=== PATIENT | female | born 1960 | race Caucasian/White ===

== ENCOUNTER 2019-10-17 11:23 | Inpatient (IN) | payer BC ==
[2019-10-17 12:28] LABS: BASO % 1.1 % (0-2.0); EOS % 0.9 % (0-4.5); LYMPH % 18.2 % (8-40); MCH 31.8 pg (25.7-33.7); MCHC 34.3 g/dl (32.0-36.0); MEAN CELL VOLUME 92.7 fl (80-96); MEAN PLT VOLUME 7.6 fl (7.5-11.1); MONO % 6.5 % (3.8-10.2); NEUT % 73.3 % (42.8-82.8); PLATELET COUNT 200 K/MM3 (134-434); RDW 12.3 % (11.6-15.6); WHITE BLOOD COUNT 5.1 K/mm3 (4.0-10.0)
[2019-10-17 12:34] LABS: INR 0.92 (0.83-1.09); PROTHROMBIN TIME (PATIENT) 10.9 SEC (9.7-13.0)
[2019-10-17 12:55] LABS: ALBUMIN 3.7 g/dl (3.4-5.0); BILIRUBIN,TOTAL 0.3 mg/dL (0.2-1); BLOOD UREA NITROGEN 20.6 mg/dL (7-18); CALCIUM 8.8 mg/dL (8.5-10.1); CREATININE 0.8 mg/dL (0.55-1.3); POTASSIUM 4.4 mmol/L (3.5-5.1); TOT PROT 6.8 g/dl (6.4-8.2)
[2019-10-17] MEDS ORDERED: PANTOPRAZOLE SODIUM 40 MG VIAL IVPUSH ONE (13:26)
[2019-10-17] MEDS ORDERED: PANTOPRAZOLE SODIUM 40 MG VIAL ONE (13:33)
--- NOTE | 2019-10-17 14:01 | PDOC ---
Documentation entered by Shayy Abarca SCRIBE, acting as scribe for Deion Lao MD. Deion Lao MD: This documentation has been prepared by the Rima aguiar Brenda, SCRIBE, under my direction and personally reviewed by me in its entirety. I confirm that the documentation accurately reflects all work, treatment, procedures, and medical decision making performed by me. History of Present Illness - General Chief Complaint: Pain Stated Complaint: GI PROBLEM Time Seen by Provider: 10/17/19 11:42 History Source: Patient Exam Limitations: No Limitations - History of Present Illness Initial Comments: 10/17/19 12:00 The patient is a 59 year old female with a significant PMH of chronic gastritis who presents to the emergency department for evaluation of an episode of pre- syncope. Patient reports that this morning she had an episode of feeling dizzy, lightheaded, "shaky" and had some tingling in her fingers 10 minutes after smoking half a cigarette. Patient notes that she is not a smoker, but rarely using cigarette smoking as a form of a laxative when she needs to have a bowel movement. Patient states that she had an endoscopy + Biopsy done Tuesday (10/15/19) and ever since then she has had 2 episodes of dark, almost black colored stools. She notes that she wanted to check the color of her stool again this morning to check if it was dark, prompting her to smoke half a cigarette. The stool was again noted to be dark. The endoscopy was negative. The patient denies taking iron supplements, pepto-bismol or blood thinners. Denies chest pain, shortness of breath. Denies fever, chills, nausea, vomiting, diarrhea and constipation. Denies dysuria, frequency, urgency and hematuria. Allergies: NKA Social history: 1 glass of wine a day and rare smoking. PCP: In the [facility] Past History - Medical History Allergies/Adverse Reactions: Allergies Allergy/AdvReac Type Severity Reaction Status Date / Time No Known Allergies Allergy Verified 10/17/19 11:32 Home Medications: Ambulatory Orders NK [No Known Home Medication] 10/17/19 COPD: No - Psycho-Social/Smoking History Smoking History: Never smoked - Substance Abuse Hx (Audit-C & DAST Scrn) How often the patient has a drink containing alcohol: Never Score: In Men: 4 or > Positive; In Women: 3 or > Positive: 0 Screen Result (Pos requires Nsg. Audit-10AR): Negative Review of Systems - Review of Systems Able to Perform ROS?: Yes Comments:: 10/17/19 12:15 CONSTITUTIONAL: (+) Dizziness (+) Lightheadedness. No fever, no chills, no fatigue EYES: ENT: No ear pain, no sore throat CARDIOVASCULAR: No chest pain, no palpitations RESPIRATORY: No cough, no SOB GI: (+) Dark stools. No nausea, no vomiting, no diarrhea GENITOURINARY: No dysuria, no frequency, no hematuria MUSKULOSKELETAL: No backpain, no joint pain, no myalgias SKIN: No rash NEURO: No headache *Physical Exam - Vital Signs Last Vital Signs Temp Pulse Resp BP Pulse Ox 98.2 F 63 16 111/72 100 10/17/19 11:29 10/17/19 11:29 10/17/19 11:29 10/17/19 11:29 10/17/19 11:29 - Physical Exam 10/17/19 12:16 CONSTITUTIONAL: Well-appearing; well-nourished; in no apparent distress HEAD: Normocephalic; atraumatic EYES: PERRL; EOM intact ENMT: External appears normal; normal oropharynx NECK: Supple; non-tender; no cervical lymphadenopathy CARD: Normal S1, S2; no murmurs, rubs, or gallops RESP: Normal chest excursion with respiration; breath sounds clear and equal bilaterally; no wheezes, rhonchi, or rales ABD: Soft, non-distended; non-tender; no palpable organomegaly, no palpable hernias EXT: Normal ROM in all four extremities; non-tender to palpation; distal pulses intact SKIN: Warm, dry, no rash NEURO: No focal neurological deficiencies. Heart Score/ECG Review - ECG Impressions Comment:: 10/17/19 12:17 Vent rate 65 bpm Normal sinus rythm with sinus arrhythmia Possible left ventricle enlargement Cannot r/o anterior infarct, age undetermined Abnormal ECG ED Treatment Course - LABORATORY CBC & Chemistry Diagram: 10/17/19 12:10 10/17/19 12:10 Medical Decision Making - Medical Decision Making 10/17/19 14:00 Patient is a well-appearing 59-year-old female status post EGD 48 hours previously presents with melena, lightheadedness and bilateral hand paresthesias. In the ED, patient is awake and alert, hemodynamically stable. Patient is orthostatic clinically. Melena is noted on rectal exam. Initial CBC reveals crit of 41. Will administer IV fluids, IV Protonix. Will consult GI. GI bleed likely related to biopsies performed during EGD. Will discussed with patient's GI doctor. Likely admission. GI (Who did endoscopy) Dr. Jamir Castro Office - Endoscopy suite - (x0) Discharge - Discharge Information Problems reviewed: Yes Clinical Impression/Diagnosis: GI bleed Qualifiers: GI bleed type/associated pathology: melena Qualified Code(s): K92.1 - Melena Condition: Fair - Admission Yes - Follow up/Referral - Patient Discharge Instructions - Post Discharge Activity
[2019-10-17] MEDS ORDERED: DEXTROSE 5%-0.45% SALINE 1,000 ML IV SCH (14:15)
--- NOTE | 2019-10-17 14:38 | PN ---
Teaching Attending Note Name of Resident: No Mtz ATTENDING PHYSICIAN STATEMENT I saw and evaluated the patient. I reviewed the resident's note and discussed the case with the resident. I agree with the resident's findings and plan as documented. SUBJECTIVE: dark stool 59 y/o female with hx of gastritis and h pylori in the past had a routine upper endoscopy on tuesday, some biopies were taken and discharged without any complications. Pt states the next day she started noting dark stools with her bms, had about 2 episodes yest and then again today. Today she reports having shortness of breath after climbing the stairs, feeling lightheaded this am and then laying down to feel better. Mild nausea which resolved. No vomiting, occured. Came to the ED as she was feeling too lightheaded. No cp, sob, n/v/f/c No other complaints Feels better since being in the ed No recent NSAID use, No ercent alcohol use PMHX: as above, ?sjogren's PSHX: none Meds: none Allergies: NKDA Socail Hx: drinks 1-2 glasses wine daily, no drug or tobacco use Family Hx: Father decreased hx of pancreatic cancer, Mother alive and well OBJECTIVE: Vital Signs Period Temp Pulse Resp BP Sys/Man Pulse Ox Last 24 Hr 98.2 F 63-77 14-16 111-124/72-82 100-100 GEN: Pt A and O, NAD HEENT: NC/AT, eomi, oropharynx - clear Neck: supple CV: pos S1, S2, RRR Chest: CTS heather Abd: soft, nt, nd pos bs Ext: no c, c, e Skin: no rashes EKG: NSR@ 65bpm, sinus arrhythmia CBC,CMP WBC 5.1 K/mm3 (4.0-10.0) 10/17/19 12:10 RBC 4.10 M/mm3 (3.60-5.2) 10/17/19 12:10 Hgb 13.0 GM/dL (10.7-15.3) 10/17/19 12:10 Hct 38.0 % (32.4-45.2) 10/17/19 12:10 MCV 92.7 fl (80-96) 10/17/19 12:10 MCH 31.8 pg (25.7-33.7) 10/17/19 12:10 MCHC 34.3 g/dl (32.0-36.0) 10/17/19 12:10 RDW 12.3 % (11.6-15.6) 10/17/19 12:10 Plt Count 200 K/MM3 (134-434) 10/17/19 12:10 MPV 7.6 fl (7.5-11.1) 10/17/19 12:10 Absolute Neuts (auto) 3.8 K/mm3 (1.5-8.0) 10/17/19 12:10 Neutrophils % 73.3 % (42.8-82.8) 10/17/19 12:10 Lymphocytes % 18.2 % (8-40) 10/17/19 12:10 Monocytes % 6.5 % (3.8-10.2) 10/17/19 12:10 Eosinophils % 0.9 % (0-4.5) 10/17/19 12:10 Basophils % 1.1 % (0-2.0) 10/17/19 12:10 Nucleated RBC % 0 % (0-0) 10/17/19 12:10 Sodium 138 mmol/L (136-145) 10/17/19 12:10 Potassium 4.4 mmol/L (3.5-5.1) 10/17/19 12:10 Chloride 105 mmol/L (98-107) 10/17/19 12:10 Carbon Dioxide 29 mmol/L (21-32) 10/17/19 12:10 Anion Gap 4 MMOL/L (8-16) L 10/17/19 12:10 BUN 20.6 mg/dL (7-18) H 10/17/19 12:10 Creatinine 0.8 mg/dL (0.55-1.3) 10/17/19 12:10 Est GFR (CKD-EPI)AfAm 93.53 10/17/19 12:10 Est GFR (CKD-EPI)NonAf 80.70 10/17/19 12:10 Random Glucose 94 mg/dL (74-106) 10/17/19 12:10 Calcium 8.8 mg/dL (8.5-10.1) 10/17/19 12:10 Total Bilirubin 0.3 mg/dL (0.2-1) 10/17/19 12:10 AST 17 U/L (15-37) 10/17/19 12:10 ALT 23 U/L (13-61) 10/17/19 12:10 Alkaline Phosphatase 50 U/L (45-117) 10/17/19 12:10 Total Protein 6.8 g/dl (6.4-8.2) 10/17/19 12:10 Albumin 3.7 g/dl (3.4-5.0) 10/17/19 12:10 ASSESSMENT AND PLAN: 59 y/o female with recent upper endoscopy admitted for melanotic stools * melena -- no active bleeding; ? from biopsies but not likely check serial h/h, frst one normal BP, HR stable Not orhtostatic IVF hydration, Protonix Clears for now * DvT prophy - venodynes only, ambulate if not dizzy COnsider DC tomorrow if H/H remain stable Problem List - Problems (1) GI bleed Code(s): K92.2 - GASTROINTESTINAL HEMORRHAGE, UNSPECIFIED Qualifiers: GI bleed type/associated pathology: melena Qualified Code(s): K92.1 - Melena
--- NOTE | 2019-10-17 15:35 | HP ---
CHIEF COMPLAINT: Dark Stools PCP: HISTORY OF PRESENT ILLNESS: 59 y/o F PMHx Sjogrens, Hemmorhoids, Chronic Gastritis, H. Pylori Infection presents with Dark Stools. Patient says she had an endoscopy on Saturday 10/14 where a biopsy was done; patient has been having yearly endoscopy's for the past for years with Dr. Castro since being diagnosed with H. Pylori. Patient says since procedure, she has experienced some mild discomfort with swallowing and nausea but has been able to tolerate diet. The day after the procedure, she noticed a dark black BM with no gross blood. She denies any prior hx of GI Bleeds or dark stools. This morning she was concerned that her stools may remain black but did not have the urge to defacate. In the past, she says she has smoked cigarrettes as a laxative---Thus she smoked a year old cigarette. Shortly after, she had a dark BM again. While climbing the stairs shortly after, she began to feel dizziness with some visual changes (was seeing spots), but did not lose conciousness. Her present at bedside endorses she was shaking, became pale and complained of numbness and tingling in her b/l upper extremities. This is the first time she has experienced any dark stools or any of these other sx's after an endoscopy prompting her to alert EMS. During my interview, patient was able to speak in full sentences and go from supine to upright seated position without experiencing any dizziness, lightheadedness. Patient endorses having a colonoscopy one year ago and says it was normal. Patient does not routinely take any medications. Denies any NSAID use, Iron supplementation, peptobismol use. Denies any travel, trauma or sick contacts. Denies any fevers, chills, chest pain, SOB, vomiting, diarrhea, constipation, dysuria, Hematuria, headache. FHx significant for father with pancreatic Ca, Mother with HTN and unclear GI issues GI (Who did endoscopy) Dr. 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 Moist mucous membranes. NECK: No JVD LUNGS: Diminished breath sounds at the bases, Otherwise CTAB, No wheezes, no crackles HEART: RRR, S1 S2 ABDOMEN: Soft, nontender, not distended, + bowel sounds, no guarding, no rebound MUSCULOSKELETAL: No CVA tenderness. EXTREMITIES: No peripheral edema. NEUROLOGICAL: Cranial nerves II-XII intact. Normal speech. Gross sensation intact throughout. 5/5 muscle strength throughout. PSYCHIATRIC: Cooperative. SKIN: Warm, dry RECTAL: Refused by patient Laboratory Last Values WBC 5.1 K/mm3 (4.0-10.0) 10/17/19 12:10 RBC 4.10 M/mm3 (3.60-5.2) 10/17/19 12:10 Hgb 13.0 GM/dL (10.7-15.3) 10/17/19 12:10 Hct 38.0 % (32.4-45.2) 10/17/19 12:10 MCV 92.7 fl (80-96) 10/17/19 12:10 MCH 31.8 pg (25.7-33.7) 10/17/19 12:10 MCHC 34.3 g/dl (32.0-36.0) 10/17/19 12:10 RDW 12.3 % (11.6-15.6) 10/17/19 12:10 Plt Count 200 K/MM3 (134-434) 10/17/19 12:10 MPV 7.6 fl (7.5-11.1) 10/17/19 12:10 Absolute Neuts (auto) 3.8 K/mm3 (1.5-8.0) 10/17/19 12:10 Neutrophils % 73.3 % (42.8-82.8) 10/17/19 12:10 Lymphocytes % 18.2 % (8-40) 10/17/19 12:10 Monocytes % 6.5 % (3.8-10.2) 10/17/19 12:10 Eosinophils % 0.9 % (0-4.5) 10/17/19 12:10 Basophils % 1.1 % (0-2.0) 10/17/19 12:10 Nucleated RBC % 0 % (0-0) 10/17/19 12:10 PT with INR 10.90 SEC (9.7-13.0) 10/17/19 12:10 INR 0.92 (0.83-1.09) 10/17/19 12:10 Sodium 138 mmol/L (136-145) 10/17/19 12:10 Potassium 4.4 mmol/L (3.5-5.1) 10/17/19 12:10 Chloride 105 mmol/L (98-107) 10/17/19 12:10 Carbon Dioxide 29 mmol/L (21-32) 10/17/19 12:10 Anion Gap 4 MMOL/L (8-16) L 10/17/19 12:10 BUN 20.6 mg/dL (7-18) H 10/17/19 12:10 Creatinine 0.8 mg/dL (0.55-1.3) 10/17/19 12:10 Est GFR (CKD-EPI)AfAm 93.53 10/17/19 12:10 Est GFR (CKD-EPI)NonAf 80.70 10/17/19 12:10 Random Glucose 94 mg/dL (74-106) 10/17/19 12:10 Calcium 8.8 mg/dL (8.5-10.1) 10/17/19 12:10 Total Bilirubin 0.3 mg/dL (0.2-1) 10/17/19 12:10 AST 17 U/L (15-37) 10/17/19 12:10 ALT 23 U/L (13-61) 10/17/19 12:10 Alkaline Phosphatase 50 U/L (45-117) 10/17/19 12:10 Total Protein 6.8 g/dl (6.4-8.2) 10/17/19 12:10 Albumin 3.7 g/dl (3.4-5.0) 10/17/19 12:10 Stool Occult Blood Positive (NEGATIVE) 10/17/19 12:10 Blood Type A POSITIVE 10/17/19 12:10 Antibody Screen Negative 10/17/19 12:10 ASSESSMENT/PLAN: 59 y/o F PMHx Sjogrens, Hemmorhoids, Chronic Gastritis, H. Pylori Infection presents with Dark Stools. #Dark Stools -In the setting of recent endoscopy with Bx concerning for UGIB -VSS without tachycardia or hypotension, BUN 20.6, FOBT Positive (though patient endorses hemorrhoids), ANA Refused by patient -Continue IV Pantoprazole 40mg daily -IV Hydration -Pain control; Avoid NSAIDs, ASA -Maintain 2 large bore IV's -Vital signs Q4H; Alert MD if HR > 100, SBP < 100 -Trend H&H; Transfuse to keep > 7.0 -Supplemental O2 to maintain SpO2 > 92% -GI Consulted -Will Make NPO after midnight for possible intervention; Clears for now -Fall precautions -Serial Abdominal exams #FEN -D5-1/2NS @ 75 -Replete Lytes PRN -Clears, Advance as tolerated #PPx -DVT: SCDs--Avoid chemical PPx given concerns for GI Bleed Dispo: Admit to med surg Visit type - Emergency Visit Emergency Visit: Yes ED Registration Date: 10/17/19 Care time: The patient presented to the Emergency Department on the above date and was hospitalized for further evaluation of their emergent condition. - New Patient This patient is new to me today: Yes Date on this admission: 10/17/19 - Critical Care Critical Care patient: No ATTENDING PHYSICIAN STATEMENT I saw and evaluated the patient. I reviewed the resident's note and discussed the case with the resident. I agree with the resident's findings and plan as documented. SUBJECTIVE: OBJECTIVE: ASSESSMENT AND PLAN:
[2019-10-17] MEDS: DEXTROSE 5%-0.45% SALINE 1,000 ML IV SCH (15:54)
--- NOTE | 2019-10-17 18:15 | PN ---
Progress Note (short form) - Note Progress Note: GI consult dictated ppi 40 mg iv bid h/h q12 clear liquid diet plan for diagnostic egd tuesday - f/u covid testing ; will tentatively make her NPO midnight in case procedure needs to be performed sooner. plan was discussed with her typewriter tester see dictated consult
--- NOTE | 2019-10-17 19:22 | CONS ---
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 She states she had an upper endoscopy performed by her track vehicle repairer in [facility] on Tuesday. Biopsies were done. 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 There were no ulcerations noted on this exam as per his report. She denies any abdominal pain, nausea, vomiting, hematemesis, or hematochezia, syncope, or dizziness. She does complain of weakness. PAST MEDICAL AND SURGICAL HISTORY: As listed in the HPI. ALLERGIES: No known drug allergies. PAST MEDICAL HISTORY: As per the HPI. PAST SURGICAL HISTORY: Breast augmentation 8 years ago. 32 years ago. SOCIAL HISTORY: She smokes intermittently, drinks 1-2 glasses of wine daily. No drug abuse. ALLERGIES: None. HOME MEDICATIONS: Reviewed. PHYSICAL EXAMINATION: Vital Signs: Temperature 99, pulse 81, blood pressure 117/76, respiratory rate 16, oxygen saturation 100% on room air . General: In no acute distress. HEENT: Anicteric sclerae. Cardiovascular: S1, S2, regular rate and rhythm. Lungs: Bilaterally clear to auscultation. Abdomen: Soft, nontender. Extremities: No edema. LABORATORY: White blood cell count 5, hemoglobin and hematocrit 13/30, MCV 92, platelet count 200, INR 0.92. Sodium 138, potassium 4.4, BUN/creatinine 20/0.8. AST 17, ALT 23, alkaline phosphatase 50, total bilirubin 0.3. Stool for occult blood was positive. COVID-19 testing is pending. Chest x-ray no acute pathology. IMPRESSION: Dark bowel movements, suspected melena after endoscopic procedure. She may have had some bleeding from previous biopsy sites. No signs of an overt gastrointestinal bleed at this time. She is hemodynamically stable. RECOMMENDATION: Clear liquid diet. Serial hemoglobin and hematocrit q.12. Start her on Protonix 40 mg IV b.i.d. After speaking with her track vehicle repairer, he would prefer if we were to perform an inpatient endoscopic evaluation, he apparently will not be in town for a week. Therefore, followup COVID testing and plan for diagnostic upper endoscopy, most likely on Tuesday. DO JENNY FERRELL/[id number] MTDD
[2019-10-17 20:01] LABS: BASO % 0.8 % (0-2.0); EOS % 0.8 % (0-4.5); HEMATOCRIT 35.9 % (32.4-45.2); HEMOGLOBIN 12.1 GM/dL (10.7-15.3); LYMPH % 26.1 % (8-40); MCH 31.3 pg (25.7-33.7); MCHC 33.7 g/dl (32.0-36.0); MEAN CELL VOLUME 92.8 fl (80-96); MEAN PLT VOLUME 7.6 fl (7.5-11.1); MONO % 5.2 % (3.8-10.2); NEUT % 67.1 % (42.8-82.8); PLATELET COUNT 191 K/MM3 (134-434); RBC 3.87 M/mm3 (3.60-5.2); RDW 12.5 % (11.6-15.6); WHITE BLOOD COUNT 4.8 K/mm3 (4.0-10.0)
[2019-10-17] MEDS: PANTOPRAZOLE SODIUM 40 MG VIAL IVPUSH SCH (21:37)
[2019-10-18] MEDS: DEXTROSE 5%-0.45% SALINE 1,000 ML IV SCH ×2 (01:26→17:55)
[2019-10-18 07:34] LABS: BASO % 1.1 % (0-2.0); EOS % 1.5 % (0-4.5); HEMATOCRIT 36.8 % (32.4-45.2); HEMOGLOBIN 12.5 GM/dL (10.7-15.3); LYMPH % 37.8 % (8-40); MCH 31.3 pg (25.7-33.7); MEAN CELL VOLUME 91.9 fl (80-96); MEAN PLT VOLUME 7.7 fl (7.5-11.1); NEUT % 52.6 % (42.8-82.8); PLATELET COUNT 219 K/MM3 (134-434); RBC 4.01 M/mm3 (3.60-5.2); RDW 12.4 % (11.6-15.6); WHITE BLOOD COUNT 4.1 K/mm3 (4.0-10.0)
[2019-10-18 07:56] LABS: ALBUMIN 3.4 g/dl (3.4-5.0); BILIRUBIN,TOTAL 0.6 mg/dL (0.2-1); BLOOD UREA NITROGEN 7.5 mg/dL (7-18); CALCIUM 8.5 mg/dL (8.5-10.1); CREATININE 0.7 mg/dL (0.55-1.3); MAGNESIUM 2.1 mg/dL (1.8-2.4); PHOSPHOROUS 3.8 mg/dL (2.5-4.9); POTASSIUM 4.2 mmol/L (3.5-5.1); TOT PROT 6.3 g/dl (6.4-8.2)
[2019-10-18] MEDS: PANTOPRAZOLE SODIUM 40 MG VIAL IVPUSH SCH (09:35)
--- NOTE | 2019-10-18 11:29 | EKG ---
Test Reason : Blood Pressure : / mmHG Vent. Rate : 065 BPM Atrial Rate : 065 BPM P-R Int : 126 ms QRS Dur : 082 ms QT Int : 418 ms P-R-T Axes : 058 067 063 degrees QTc Int : 434 ms NORMAL SINUS RHYTHM WITH SINUS ARRHYTHMIA POSSIBLE LEFT ATRIAL ENLARGEMENT CANNOT RULE OUT ANTERIOR INFARCT , AGE UNDETERMINED ABNORMAL ECG NO PREVIOUS ECGS AVAILABLE Confirmed by MICHELLE JOHNSON MD ([id number]) on 10/18/2019 11:29:02 AM Referred By: Confirmed By:MICHELLE JOHNSON MD
--- NOTE | 2019-10-18 13:52 | PN.GI ---
GI Progress Note Subjective: Scant formed dark BM today. No overt melena Spoke with her math and physics instructor Dr. Amaral: took multiple gastric and esophageal biopsies during EGD - Objective Vital Signs: Vital Signs Temperature 99.2 F 10/18/19 09:50 Pulse Rate 73 10/18/19 09:50 Respiratory Rate 18 10/18/19 09:50 Blood Pressure 119/77 10/18/19 09:50 O2 Sat by Pulse Oximetry (%) 99 10/18/19 09:50 Constitutional: Calm Eyes: No: Sclera Icterus Cardiovascular: Yes: Regular Rate and Rhythm Respiratory: Yes: CTA Bilaterally Gastrointestinal Inspection: No: Distention ...Auscultate: Yes: Normoactive Bowel Sounds ...Palpate: Yes: Soft. No: Hepatomegaly, Splenomegaly, Tenderness Labs: CBC, BMP 10/18/19 06:25 10/18/19 06:25 INR, PTT INR 0.92 (0.83-1.09) 10/17/19 12:10 Problem List - Problems (1) GI bleed Assessment/Plan: Hemodynamically stable without significant change in H/H. Normalized BUN. Do not think this relfects significant GI blleding. likely oozing from biopsy sites (just 30cc of blood can produce melena) Advise: Advance to clears Check repeat CBC If counts remain stable, D/C tomorrow and will need follow-up with her math and physics instructor. If overt melena, change in hemodynamics, worsening anemia, possible EGD 10/18 Protonix 40mg PO BID Code(s): K92.2 - GASTROINTESTINAL HEMORRHAGE, UNSPECIFIED Qualifiers: GI bleed type/associated pathology: melena Qualified Code(s): K92.1 - Melena
--- NOTE | 2019-10-18 14:12 | PN ---
Physical Exam: SUBJECTIVE: Patient seen and examined at bedside this morning. No acute events overnight. Patient reported she had no episodes of bloody bowel movements/dark stools since admission. OBJECTIVE: Vital Signs Temperature 99.2 F 10/18/19 09:50 Pulse Rate 73 10/18/19 09:50 Respiratory Rate 18 10/18/19 09:50 Blood Pressure 119/77 10/18/19 09:50 O2 Sat by Pulse Oximetry (%) 99 10/18/19 09:50 GENERAL: The patient is awake, alert, and fully oriented, in no acute distress. HEAD: Normal with no signs of trauma. EYES: PERRLA, EOMI, sclera anicteric, conjunctiva clear. ENT:moist mucous membranes. NECK: Trachea midline, full range of motion, supple. LUNGS: Breath sounds equal, clear to auscultation bilaterally HEART: Regular rate and rhythm, S1, S2 ABDOMEN: Soft, nontender, nondistended, normoactive bowel sounds EXTREMITIES: 2+ pulses, warm, well-perfused, no edema. NEUROLOGICAL: Cranial nerves II through XII grossly intact. Normal speech PSYCH: Normal mood, normal affect. SKIN: Warm, dry, normal turgor Laboratory Results - last 24 hr 10/17/19 10/17/19 10/17/19 14:25 19:48 21:10 WBC 4.8 RBC 3.87 Hgb 12.1 Hct 35.9 MCV 92.8 MCH 31.3 MCHC 33.7 RDW 12.5 Plt Count 191 MPV 7.6 Absolute Neuts (auto) 3.2 Neutrophils % 67.1 Lymphocytes % 26.1 D Monocytes % 5.2 Eosinophils % 0.8 Basophils % 0.8 Nucleated RBC % 0 PTT (Actin FS) 27.2 Sodium Potassium Chloride Carbon Dioxide Anion Gap BUN Creatinine Est GFR (CKD-EPI)AfAm Est GFR (CKD-EPI)NonAf Random Glucose Calcium Phosphorus Magnesium Total Bilirubin AST ALT Alkaline Phosphatase Total Protein Albumin COVID-19 (NAVIN) Not detected 10/18/19 10/18/19 06:25 06:25 WBC 4.1 RBC 4.01 Hgb 12.5 Hct 36.8 MCV 91.9 MCH 31.3 MCHC 34.0 RDW 12.4 Plt Count 219 MPV 7.7 Absolute Neuts (auto) 2.2 Neutrophils % 52.6 D Lymphocytes % 37.8 D Monocytes % 7.0 Eosinophils % 1.5 D Basophils % 1.1 Nucleated RBC % 0 PTT (Actin FS) Sodium 142 Potassium 4.2 Chloride 108 H Carbon Dioxide 26 Anion Gap 8 BUN 7.5 Creatinine 0.7 Est GFR (CKD-EPI)AfAm 109.91 Est GFR (CKD-EPI)NonAf 94.84 Random Glucose 110 H Calcium 8.5 Phosphorus 3.8 Magnesium 2.1 Total Bilirubin 0.6 AST 15 ALT 21 Alkaline Phosphatase 46 Total Protein 6.3 L Albumin 3.4 COVID-19 (NAVIN) Active Medications Generic Name Dose Route Start Last Admin Trade Name Freq PRN Reason Stop Dose Admin Dextrose/Sodium Chloride 1,000 mls @ 75 mls/hr 10/17/19 15:40 10/18/19 01:26 D5-1/2ns - IV 75 mls/hr ASDIR STACEY Administration Pantoprazole Sodium 40 mg 10/18/19 22:00 Protonix - PO BID STACEY ASSESSMENT/PLAN: Patient is a 59 y/o F PMHx Sjogrens, Hemmorhoids, Chronic Gastritis, H. Pylori Infection presents with Dark Stools. #Dark Stools likely 2/2 UGIB -In the setting of recent endoscopy with Biopsy -Patient remains hemodynamically stable, H/H stable, BUN improving -GI (Dr. Stout) consulted, Recommendations appreciated. -possibly GI bleeding not significant -will advance to clear liquid diet -monitor H/H, bm -Protonix 40mg po bid -If counts remain stable, plan for dc tomorrow with follow up with patient's GI -if with overt melena, worsening anemia or pt becomes hemodynamically unstable, possible EGD 10/18 #FEN -D5-1/2NS @ 75 -Replete Lytes PRN -Clears, Advance as tolerated #PPx -DVT: SCDs--Avoid chemical PPx given concerns for GI Bleed #Dispo: -Admit to med surg -full code -for possible dc tomorrow if patient remains stable Visit type - Emergency Visit Emergency Visit: Yes ED Registration Date: 10/17/19 Care time: The patient presented to the Emergency Department on the above date and was hospitalized for further evaluation of their emergent condition. - New Patient This patient is new to me today: Yes Date on this admission: 10/18/19 - Critical Care Critical Care patient: No ATTENDING PHYSICIAN STATEMENT I saw and evaluated the patient. I reviewed the resident's note and discussed the case with the resident. I agree with the resident's findings and plan as documented. SUBJECTIVE: OBJECTIVE: ASSESSMENT AND PLAN:
[2019-10-18 14:29] LABS: HEMOGLOBIN 13.1 GM/dL (10.7-15.3); MCHC 33.5 g/dl (32.0-36.0); MEAN CELL VOLUME 92.5 fl (80-96); MEAN PLT VOLUME 7.5 fl (7.5-11.1); PLATELET COUNT 223 K/MM3 (134-434); RBC 4.22 M/mm3 (3.60-5.2); RDW 12.1 % (11.6-15.6); WHITE BLOOD COUNT 4.3 K/mm3 (4.0-10.0)
[2019-10-18 14:49] VITALS: BMI 18.9
[2019-10-18] MEDS ORDERED: ACETAMINOPHEN 325 MG TABLET (FP) PO PRN (17:28)
--- NOTE | 2019-10-18 19:13 | PN ---
Teaching Attending Note Name of Resident: Nataly Villa ATTENDING PHYSICIAN STATEMENT I saw and evaluated the patient. I reviewed the resident's note and discussed the case with the resident. I agree with the resident's findings and plan as documented. SUBJECTIVE: Patient seen and examined at bedside, admitted for melena/dark stools post EGD, will wait for AM CBC if stable DC home and follow w/ GI as OP. VSS. OBJECTIVE: GENERAL: The patient is awake, alert, and fully oriented, in no acute distress. HEAD: Normal with no signs of trauma. EYES: PERRLA, EOMI, sclera anicteric, conjunctiva clear. ENT:moist mucous membranes. NECK: Trachea midline, full range of motion, supple. LUNGS: Breath sounds equal, clear to auscultation bilaterally HEART: Regular rate and rhythm, S1, S2 ABDOMEN: Soft, nontender, nondistended, normoactive bowel sounds EXTREMITIES: 2+ pulses, warm, well-perfused, no edema. NEUROLOGICAL: Cranial nerves II through XII grossly intact. Normal speech PSYCH: Normal mood, normal affect. SKIN: Warm, dry, normal turgor Vital Signs - 24 hr 10/17/19 10/17/19 10/18/19 22:29 22:31 06:36 Temperature 99 F 99.0 F Pulse Rate 72 74 Respiratory 18 18 Rate Blood Pressure 127/73 109/67 O2 Sat by Pulse 98 98 Oximetry (%) 10/18/19 10/18/19 10/18/19 09:00 09:50 13:00 Temperature 99.2 F 98.0 F Pulse Rate 73 79 Respiratory 18 18 Rate Blood Pressure 119/77 109/71 O2 Sat by Pulse 99 99 98 Oximetry (%) 10/18/19 16:30 Temperature 98.3 F Pulse Rate 77 Respiratory 20 Rate Blood Pressure 118/77 O2 Sat by Pulse 100 Oximetry (%) Laboratory Results - last 24 hr 10/17/19 10/17/19 10/17/19 14:25 19:48 21:10 WBC 4.8 RBC 3.87 Hgb 12.1 Hct 35.9 MCV 92.8 MCH 31.3 MCHC 33.7 RDW 12.5 Plt Count 191 MPV 7.6 Absolute Neuts (auto) 3.2 Neutrophils % 67.1 Lymphocytes % 26.1 D Monocytes % 5.2 Eosinophils % 0.8 Basophils % 0.8 Nucleated RBC % 0 PTT (Actin FS) 27.2 Sodium Potassium Chloride Carbon Dioxide Anion Gap BUN Creatinine Est GFR (CKD-EPI)AfAm Est GFR (CKD-EPI)NonAf Random Glucose Calcium Phosphorus Magnesium Total Bilirubin AST ALT Alkaline Phosphatase Total Protein Albumin COVID-19 (NAVIN) Not detected 10/18/19 10/18/19 10/18/19 06:25 06:25 14:10 WBC 4.1 4.3 RBC 4.01 4.22 Hgb 12.5 13.1 Hct 36.8 39.0 MCV 91.9 92.5 MCH 31.3 31.0 MCHC 34.0 33.5 RDW 12.4 12.1 Plt Count 219 223 MPV 7.7 7.5 Absolute Neuts (auto) 2.2 Neutrophils % 52.6 D Lymphocytes % 37.8 D Monocytes % 7.0 Eosinophils % 1.5 D Basophils % 1.1 Nucleated RBC % 0 PTT (Actin FS) Sodium 142 Potassium 4.2 Chloride 108 H Carbon Dioxide 26 Anion Gap 8 BUN 7.5 Creatinine 0.7 Est GFR (CKD-EPI)AfAm 109.91 Est GFR (CKD-EPI)NonAf 94.84 Random Glucose 110 H Calcium 8.5 Phosphorus 3.8 Magnesium 2.1 Total Bilirubin 0.6 AST 15 ALT 21 Alkaline Phosphatase 46 Total Protein 6.3 L Albumin 3.4 COVID-19 (NAVIN) Home Medications Medication Instructions Recorded NK [No Known Home Medication] 10/17/19 Current Medications Generic Name Dose Route Start Last Admin Trade Name Freq PRN Reason Stop Dose Admin Acetaminophen 650 mg 10/18/19 17:28 10/18/19 17:55 Tylenol - PO 650 mg Q6H PRN Administration PAIN LEVEL 4 - 6 Dextrose/Sodium Chloride 1,000 mls @ 75 mls/hr 10/17/19 15:40 10/18/19 17:55 D5-1/2ns - IV 75 mls/hr ASDIR STACEY Administration Pantoprazole Sodium 40 mg 10/18/19 22:00 Protonix - PO BID STACEY ASSESSMENT AND PLAN: 59 F Melena following EGD/colonoscopy Sjrogen's Chronic Gastritis H. pylori infection Plan: Cont. Protonix 40mg BID D5 1/2 NS, NPO status/clears Tylenol for pain avoid NSAIDs AM CBC if normal/stable then DC and follow w/ GI as OP DVT ppx: SCD
[2019-10-18] MEDS ORDERED: IBUPROFEN 400 MG TABLET (FP) PO ONE (21:54)
[2019-10-18] MEDS ORDERED: ACETAMINOPHEN 1000 MG/100 ML VIAL (NON FORMULARY) IVPB ONE (21:56)
[2019-10-18] MEDS: PANTOPRAZOLE 40 MG TABLET PO SCH (23:06)
[2019-10-19] MEDS: DEXTROSE 5%-0.45% SALINE 1,000 ML IV SCH (06:20)
[2019-10-19] MEDS ORDERED: ACETAMINOPHEN/CAFFEINE/BUTALBITAL 1 TAB PO ONE (07:56)
[2019-10-19 08:40] LABS: HEMATOCRIT 35.1 % (32.4-45.2); HEMOGLOBIN 12.2 GM/dL (10.7-15.3); MCH 31.9 pg (25.7-33.7); MCHC 34.7 g/dl (32.0-36.0); MEAN CELL VOLUME 92.1 fl (80-96); PLATELET COUNT 204 K/MM3 (134-434); RBC 3.81 M/mm3 (3.60-5.2); WHITE BLOOD COUNT 3.7 K/mm3 (4.0-10.0)
[2019-10-19] MEDS: PANTOPRAZOLE 40 MG TABLET PO SCH (09:11)
[2019-10-19 09:14] LABS: BLOOD UREA NITROGEN 5.8 mg/dL (7-18); CALCIUM 8.4 mg/dL (8.5-10.1); CREATININE 0.7 mg/dL (0.55-1.3); POTASSIUM 3.8 mmol/L (3.5-5.1)
[2019-10-19] MEDS ORDERED: ALPRAZolam 1 MG TABLET PO PRN (12:04)
--- NOTE | 2019-10-19 12:06 | PN ---
Progress Note (short form) - Note Progress Note: stable h/h. advance diet. OK to D/C home on protonix 40mg PO BID. Will need f/u with her endodontic assistant next week Problem List - Problems (1) GI bleed Code(s): K92.2 - GASTROINTESTINAL HEMORRHAGE, UNSPECIFIED Qualifiers: GI bleed type/associated pathology: melena Qualified Code(s): K92.1 - Melena
--- NOTE | 2019-10-19 15:04 | DS ---
Physical Exam: SUBJECTIVE: Patient seen and examined at bedside this morning. No acute events overnight. Patient had an episode of panic this morning after hearing some bad news from family. Xanax given and patient felt better. Denies any suicidal/homicidal ideation. at bedside to slate picker patient. OBJECTIVE: Vital Signs Temperature 98.4 F 10/19/19 09:00 Pulse Rate 70 10/19/19 09:00 Respiratory Rate 18 10/19/19 09:00 Blood Pressure 123/79 10/19/19 09:00 O2 Sat by Pulse Oximetry (%) 98 10/19/19 09:00 PHYSICAL EXAM GENERAL: The patient is awake, alert, and fully oriented, in no acute distress. HEAD: Normal with no signs of trauma. EYES: PERRLA, EOMI, sclera anicteric, conjunctiva clear. ENT:moist mucous membranes. NECK: Trachea midline, full range of motion, supple. LUNGS: Breath sounds equal, clear to auscultation bilaterally HEART: Regular rate and rhythm, S1, S2 ABDOMEN: Soft, nontender, nondistended, normoactive bowel sounds EXTREMITIES: 2+ pulses, warm, well-perfused, no edema. NEUROLOGICAL: Cranial nerves II through XII grossly intact. Normal speech PSYCH: Normal mood, normal affect. SKIN: Warm, dry, normal turgor LABS Laboratory Results - last 24 hr 10/19/19 10/19/19 06:50 06:50 WBC 3.7 L RBC 3.81 Hgb 12.2 Hct 35.1 MCV 92.1 MCH 31.9 MCHC 34.7 RDW 12.0 Plt Count 204 MPV 8.0 Sodium 142 Potassium 3.8 Chloride 110 H Carbon Dioxide 28 Anion Gap 3 L BUN 5.8 L Creatinine 0.7 Est GFR (CKD-EPI)AfAm 109.91 Est GFR (CKD-EPI)NonAf 94.84 Random Glucose 93 Calcium 8.4 L HOSPITAL COURSE: Date of Admission:10/17/19 Date of Discharge: 10/19/19 Patient is a 59 y/o F PMHx Sjogrens, Hemorrhoids, Chronic Gastritis, H. Pylori Infection presents with Dark Stools. PAtient had recent EGD done with biopsy from her slag skimmer. Patient's GI was aware recommended repeat EGD if patient becomes hemodynamically unstable or H/H worsens. Patient has been stable throughout her hospital stay. Protonix 40mg po bid. Patient was discharged with instructions to follow up with her slag skimmer. Minutes to complete discharge: 36 Discharge Summary Problems reviewed: Yes Reason For Visit: GASTROINTESTINAL HEMORRHAGE Current Active Problems GI bleed (Acute) Condition: Improved - Instructions Diet, Activity, Other Instructions: Your visit You were admitted to the hospital because of dark stools. You recently had an EGD done with biopsy and it likely caused some bleeding. We monitored your blood while you were here, and has remained stable. Please follow up with your slag skimmer as scheduled. Medications Please take the following medication as prescribed: 1. Protonix 40mg twice a day. Follow up PLease follow up with your primary care doctor within 1 week. Please follow up with your slag skimmer, Dr. Amaral as scheduled. If your slag skimmer is not available, a referral has been provided for Dr. Stout. Additional info Please call 911 or go to the ED if with any worsening fevers, chills, headache, dizziness, chest pain, shortness of breath, belly pain, bloody stools or any new concerns noted. Referrals: Juvenal Stout DO [Staff Physician] - Disposition: HOME - Home Medications Comprehensive Discharge Medication List: Ambulatory Orders Pantoprazole Sodium [Protonix] 40 mg PO BID #60 tablet. 10/19/19 This patient is new to me today: No Emergency Visit: Yes ED Registration Date: 10/17/19 Care time: The patient presented to the Emergency Department on the above date and was hospitalized for further evaluation of their emergent condition. Critical Care patient: No - Discharge Referral Referred to [facility] No ATTENDING PHYSICIAN STATEMENT I saw and evaluated the patient. I reviewed the resident's note and discussed the case with the resident. I agree with the resident's findings and plan as documented. SUBJECTIVE: OBJECTIVE: ASSESSMENT AND PLAN:
[2019-10-19 15:13] VITALS: BP 116/72; PULSE 74; TEMP 98.1
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
== END 2019-10-19 15:13 | disposition home or self-care (01) | DRG 379 ==
LOC: JER 11:23 → JERBED 14:01 → J8W 20:29
PROVIDERS: ADMIT Internal Medicine
DX: K92.2 Gastrointestinal hemorrhage, unspecified (principal); F41.0 Panic disorder [episodic paroxysmal anxiety]; K29.50 Unspecified chronic gastritis without bleeding
CPT/HCPCS: 36415; 71045-TC-FY; 80048; 80053; 82272; 83735; 84100; 85025; 85027; 85610; 85730; 86850; 86900; 86901; 93005; 93010; 97116-GP; 97161-GP; 99285-25; J0131; U0003